=== PATIENT | female | born 1975 | race Caucasian/White ===

== ENCOUNTER 2017-09-16 20:31 | Emergency (ER) | payer OTHER ==
--- NOTE | 2017-09-16 20:44 | EDM.PDOC ---
ED HPI GENERAL MEDICAL PROBLEM - General Chief Complaint: Chest Pain Stated Complaint: CHEST PAIN AND HURTS WHEN BREATHING Time Seen by Provider: 09/16/17 20:37 - History of Present Illness INITIAL COMMENTS - FREE TEXT/NARRATIVE: HISTORY AND PHYSICAL: History of present illness: Patient 41-year-old female with no significant past medical history presents with concern of chest pain she describes it as sharp intermittent without associated shortness breath nausea vomiting diaphoresis or palpitations states it started yesterday she denies any trauma or other concern. Review of systems: As per history of present illness and below otherwise all systems reviewed and negative. Past medical history: As per history of present illness and as reviewed below otherwise noncontributory. Surgical history: As per history of present illness and as reviewed below otherwise noncontributory. Social history: No reported history of drug or alcohol abuse. Family history: As per history of present illness and as reviewed below otherwise noncontributory. Physical exam: HEENT: Atraumatic, normocephalic, pupils reactive, negative for conjunctival pallor or scleral icterus, mucous membranes moist, throat clear, neck supple, nontender, trachea midline. Lungs: Clear to auscultation, breath sounds equal bilaterally, chest nontender. Heart: S1S2, regular, negative for clicks, rubs, or JVD. Abdomen: Soft, nondistended, nontender. Negative for masses or hepatosplenomegaly. Negative for costovertebral tenderness. Pelvis: Stable nontender. Genitourinary: Deferred. Rectal: Deferred. Extremities: Atraumatic, negative for cords or calf pain. Neurovascular unremarkable. Neuro: Awake, alert, oriented. Cranial nerves II through XII unremarkable. Cerebellum unremarkable. Motor and sensory unremarkable throughout. Exam nonfocal. Diagnostics: CBC CMP troponin PT/INR chest x-ray EKG Therapeutics: IV O2 monitor aspirin 324 mg by mouth Impression: #1 atypical chest pain Definitive disposition and diagnosis as appropriate pending reevaluation and review of above. Chest Pain Score (Numeric/FACES): 7 - Related Data Allergies Allergy/AdvReac Type Severity Reaction Status Date / Time latex Allergy Blisters Verified 05/11/15 00:07 Home Meds: Home Meds Citalopram [Citalopram Hbr] 10 mg PO DAILY 07/26/13 [History] Simvastatin [Zocor] 20 mg PO DAILY 07/26/13 [History] Past Medical History - Past Health History Medical/Surgical History: Denies Medical/Surgical History HEENT History: Reports: None Cardiovascular History: Reports: None, High Cholesterol Respiratory History: Reports: None Gastrointestinal History: Reports: None Genitourinary History: Reports: None 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: 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 History: Reports: None Neurological History: Reports: None Psychiatric History: Reports: Depression Endocrine/Metabolic History: Reports: None Hematologic History: Reports: None Immunologic History: Reports: None Oncologic (Cancer) History: Reports: None Dermatologic History: Reports: None - Infectious Disease History Infectious Disease History: Reports: Chicken Pox - Past Surgical History Head Surgeries/Procedures: Reports: None HEENT Surgical History: Reports: Adenoidectomy, Tonsillectomy Respiratory Surgical History: Reports: None GI Surgical History: Reports: None Female Surgical History: Reports: None Endocrine Surgical History: Reports: None 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 Surgical History: Reports: None Oncologic Surgical History: Reports: None Social & Family History - Family History Oncologic: Reports: Ovarian - Tobacco Use Smoking Status *Q: Never Smoker ED ROS GENERAL - Review of Systems Review Of Systems: ROS reveals no pertinent complaints other than HPI. ED EXAM, GENERAL - Physical Exam Exam: See Below (The dictation) Course - Vital Signs Last Recorded V/S: Last Vital Signs Temp 36.3 C 09/16/17 20:37 Pulse 65 09/16/17 22:03 Resp 18 09/16/17 22:03 BP 103/63 09/16/17 22:03 Pulse Ox 95 09/16/17 22:03 - Orders/Labs/Meds Orders: Active Orders 24 hr Category Date Time Status Cardiac Monitoring [RC] . DIRECTED Care 09/16/17 20:44 Active EKG Documentation Completion [RC] STAT Care 09/16/17 20:44 Active Ang Chest [CT] Stat Exams 09/16/17 21:25 Taken Chest 1V Frontal [CR] Stat Exams 09/16/17 20:45 Taken Sodium Chloride 0.9% [Saline Flush] Med 09/16/17 20:45 Active 10 ml FLUSH ASDIRECTED PRN Sodium Chloride 0.9% [Saline Flush] Med 09/16/17 20:45 Active 2.5 ml FLUSH ASDIRECTED PRN Saline Lock Insert [OM.PC] Stat Oth 09/16/17 20:44 Ordered Medication Orders Sodium Chloride (Saline Flush) 10 ml FLUSH ASDIRECTED PRN PRN Reason: Keep Vein Open Last Admin: 09/16/17 20:53 Dose: 10 ml Sodium Chloride (Saline Flush) 2.5 ml FLUSH ASDIRECTED PRN PRN Reason: Keep Vein Open Last Admin: 09/16/17 20:53 Dose: 2.5 ml Labs: Laboratory Tests 09/16/17 09/16/17 09/16/17 Range/Units 20:48 20:48 20:48 WBC 8.81 (4.0-11.0) K/uL RBC 4.65 (4.30-5.90) M/uL Hgb 9.7 L (12.0-16.0) g/dL Hct 32.0 L (36.0-46.0) % MCV 68.8 L (80.0-98.0) fL MCH 20.9 L (27.0-32.0) pg MCHC 30.3 L (31.0-37.0) g/dL RDW Std Deviation 41.5 (28.0-62.0) fl RDW Coeff of Samira 17 H (11.0-15.0) % Plt Count 381 (150-400) K/uL MPV 9.30 (7.40-12.00) fL Neut % (Auto) 68.9 (48.0-80.0) % Lymph % (Auto) 22.5 (16.0-40.0) % [place] % (Auto) 5.8 (0.0-15.0) % Eos % (Auto) 2.5 (0.0-7.0) % Baso % (Auto) 0.3 (0.0-1.5) % Neut # (Auto) 6.1 H (1.4-5.7) K/uL Lymph # (Auto) 2.0 (0.6-2.4) K/uL [place] # (Auto) 0.5 (0.0-0.8) K/uL Eos # (Auto) 0.2 (0.0-0.7) K/uL Baso # (Auto) 0.0 (0.0-0.1) K/uL Nucleated RBC % 0.0 /100WBC Nucleated RBCs # 0 K/uL INR 0.98 D-Dimer, Quantitative 2.00 H (0.0-0.52) mg/LFEU Sodium 138 (136-145) mmol/L Potassium 3.6 (3.5-5.1) mmol/L Chloride 104 (98-107) mmol/L Carbon Dioxide 25.3 (21.0-32.0) mmol/L BUN 12 (7.0-18.0) mg/dL Creatinine 0.9 (0.6-1.0) mg/dL Est Cr Clr Drug Dosing 72.47 mL/min Estimated GFR (MDRD) > 60.0 ml/min Glucose 94 (74-106) mg/dL Calcium 9.0 (8.5-10.1) mg/dL Total Bilirubin 0.3 (0.2-1.0) mg/dL AST 15 (15-37) IU/L ALT 26 (14-63) IU/L Alkaline Phosphatase 77 (46-116) U/L Troponin I < 0.050 (0.000-0.056) ng/mL Total Protein 7.1 (6.4-8.2) g/dL Albumin 3.8 (3.4-5.0) g/dL Globulin 3.3 (2.0-3.5) g/dL Albumin/Globulin Ratio 1.2 L (1.3-2.8) Meds: Medications Generic Name Dose Route Start Last Admin Trade Name Skipq PRN Reason Stop Dose Admin Sodium Chloride 10 ml 09/16/17 20:45 09/16/17 20:53 Saline Flush FLUSH 10 ml ASDIRECTED PRN Administration Keep Vein Open Sodium Chloride 2.5 ml 09/16/17 20:45 09/16/17 20:53 Saline Flush FLUSH 2.5 ml ASDIRECTED PRN Administration Keep Vein Open Discontinued Medications Generic Name Dose Route Start Last Admin Trade Name Freq PRN Reason Stop Dose Admin Aspirin 324 mg 09/16/17 20:45 09/16/17 20:53 Aspirin PO 09/16/17 20:46 324 mg ONETIME ONE Administration Iopamidol 50 ml 09/16/17 22:13 09/16/17 22:14 Isovue-370 (76%) IV 09/16/17 22:14 50 ml ONETIME ONE Administration Departure - Departure Time of Disposition: 23:04 Disposition: Home, Self-Care 01 Condition: Good Clinical Impression: Atypical chest pain - Discharge Information Referrals: PCP,None [Primary Care Provider] - Forms: ED Department Discharge Additional Instructions: The following information is given to patients seen in the emergency department who are being discharged to home. This information is to outline your options for follow-up care. We provide all patients seen in our emergency department with a follow-up referral. The need for follow-up, as well as the timing and circumstances, are variable depending upon the specifics of your emergency department visit. If you don't have a primary care physician on staff, we will provide you with a referral. We always advise you to contact your personal physician following an emergency department visit to inform them of the circumstance of the visit and for follow-up with them and/or the need for any referrals to a consulting specialist. The emergency department will also refer you to a specialist when appropriate. This referral assures that you have the opportunity for followup care with a specialist. All of these measure are taken in an effort to provide you with optimal care, which includes your followup. Under all circumstances we always encourage you to contact your private physician who remains a resource for coordinating your care. When calling for followup care, please make the office aware that this follow-up is from your recent emergency room visit. If for any reason you are refused follow-up, please contact the [facility] emergency department at and asked to speak to the emergency department charge nurse. Follow-up primary medical doctor Motrin/Tylenol as directed or return as needed as discussed - My Orders Last 24 Hours: My Active Orders 09/16/17 20:44 Cardiac Monitoring [RC] . DIRECTED EKG Documentation Completion [RC] STAT Saline Lock Insert [OM.PC] Stat 09/16/17 20:45 Chest 1V Frontal [CR] Stat Sodium Chloride 0.9% [Saline Flush] 10 ml FLUSH ASDIRECTED PRN Sodium Chloride 0.9% [Saline Flush] 2.5 ml FLUSH ASDIRECTED PRN 09/16/17 21:25 Ang Chest [CT] Stat - Assessment/Plan Last 24 Hours: My Active Orders 09/16/17 20:44 Cardiac Monitoring [RC] . DIRECTED EKG Documentation Completion [RC] STAT Saline Lock Insert [OM.PC] Stat 09/16/17 20:45 Chest 1V Frontal [CR] Stat Sodium Chloride 0.9% [Saline Flush] 10 ml FLUSH ASDIRECTED PRN Sodium Chloride 0.9% [Saline Flush] 2.5 ml FLUSH ASDIRECTED PRN 09/16/17 21:25 Ang Chest [CT] Stat
[2017-09-16] MEDS ORDERED: Aspirin 81 MG Tab.Chew PO ONE (20:45)
[2017-09-16] MEDS ORDERED: Sodium Chloride 0.9% 2.5 ML Syringe FLUSH PRN (20:45)
[2017-09-16] MEDS ORDERED: Sodium Chloride 0.9% 10 ML Syringe FLUSH PRN (20:45)
[2017-09-16 21:24] LABS: CHLORIDE,CL 104 mmol/L (98-107); SODIUM,NA 138 mmol/L (136-145)
[2017-09-16] MEDS ORDERED: Iopamidol 755 MG/ML 50 ML Bottle IV ONE (22:13)
[2017-09-16 23:09] VITALS: BP 115/73
--- NOTE | 2017-09-18 20:29 | CR ---
EXAM DATE: 09/16/17 PATIENT'S AGE: 41 Patient: YUE MANSFIELD Facility: [place], [place] Site . Site : 1975 Study: XRay Chest [id number] 9:19:49 PM Ordering Physician: Jeb Cameron Final Report: INDICATION: Chest Pain, shortness of breath TECHNIQUE: Chest radiograph 1 view COMPARISON: 07/28/08 FINDINGS: Moderate degradation of image quality noted due to body habitus. Mediastinum: The heart silhouette is normal in size and morphology. The mediastinum is normal in appearance. Lungs: Both lungs are unremarkable in appearance. No sign of pleural effusion seen. No pneumothorax is identified. Bones and soft tissue: Unremarkable for age. IMPRESSION: 1. No acute cardiopulmonary disease is seen. Dictated by: Amador Tovar MD @ 09/16/2017 21:31:53 (Electronic Signature) Report Signed by Proxy. [facility] HOSPITALMarva
--- NOTE | 2017-09-18 20:30 | CT ---
EXAM DATE: 09/16/17 PATIENT'S AGE: 41 Patient: YUE MANSFIELD Facility: [place], [place] Site . Site : 1975 Study: CT Chest Angio [id number] 10:15:22 PM Ordering Physician: Jeb Cameron Final Report: INDICATION: Chest pain since yesterday. Rule out pulmonary embolism. TECHNIQUE: Volumetric helical scanning of the thorax was performed during infusion of 50 cc of Isovue 370 contrast material IV, timing optimized for pulmonary arterial opacification. Coronal and sagittal reconstructions were obtained. COMPARISON: None. FINDINGS: The images are of acceptable quality and demonstrate uniform vascular enhancement within the pulmonary arteries. No pulmonary arterial filling defect is identified. The lungs are low in volume with crowded markings. No infiltrate or pleural effusion is demonstrated. No airway abnormality is evident. No mediastinal or hilar lymphadenopathy is demonstrated. The heart size is normal. Images of the upper abdomen are unremarkable. IMPRESSION: 1. Negative for pulmonary embolism. 2. Lungs low in volume with crowded markings. No obvious infiltrate. Please note that all CT scans at this facility use dose modulation, iterative reconstruction, and/or weight-based dosing when appropriate to reduce radiation dose to as low as reasonably achievable. Dictated by Slade Ye MD @ Sep 16 2017 10:55PM (Electronic Signature) Report Signed by Proxy. ALEJANDRA
== END 2017-09-16 23:19 | disposition home or self-care (01) ==
LOC: MW.ED 20:31
DX: R07.89 Other chest pain (principal); Z91.040 Latex allergy status; Z79.899 Other long term (current) drug therapy
CPT/HCPCS: 36415; 71045; 71275; 80053; 84484; 85025; 85379; 85610; 93005; 99285; A9270; Q9967

== ENCOUNTER 2019-01-21 07:32 | Emergency (ER) | payer OTHER ==
[2019-01-21] MEDS ORDERED: Ibuprofen 400 MG Tab PO ONE (07:56)
--- NOTE | 2019-01-21 08:10 | EDM.PDOC ---
ED HPI GENERAL MEDICAL PROBLEM - General Chief Complaint: Lower Extremity Injury/Pain Stated Complaint: PAIN IN RIGHT HIP Time Seen by Provider: 01/21/19 07:41 Source of Information: Reports: Patient History Limitations: Reports: No Limitations - History of Present Illness INITIAL COMMENTS - FREE TEXT/NARRATIVE: pt. presenting today w/ right hip pain w/ radiation into right leg; this has been a chronic issue that was exacerbated recently after tripping over her dog last week. Has tried Ibuprofen w/ minimal relief but still is having 8/10 pain this AM. HAs been seen by a chiropractor multiple times w/ no resolution of symptoms. Denies fevers, chills, BA, changes in bowel or bladder habits. +mild antalgic gait. No other symptoms to report. RIght Hip Pain Score (Numeric/FACES): 9 - Related Data Allergies Allergy/AdvReac Type Severity Reaction Status Date / Time latex Allergy Blisters Verified 01/21/19 07:46 Home Meds: Home Meds Citalopram [Citalopram Hbr] 10 mg PO DAILY 07/26/13 [History] Simvastatin [Zocor] 20 mg PO DAILY 07/26/13 [History] methylPREDNISolone [Medrol] 84 mg PO DAILY 6 Days #1 tab.ds.pk 01/21/19 [Rx] Past Medical History - Past Health History Medical/Surgical History: Denies Medical/Surgical History HEENT History: Reports: None Cardiovascular History: Reports: None, High Cholesterol Respiratory History: Reports: None Gastrointestinal History: Reports: None Genitourinary History: Reports: None 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: 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 History: Reports: None Neurological History: Reports: None Psychiatric History: Reports: Depression Endocrine/Metabolic History: Reports: None Hematologic History: Reports: None Immunologic History: Reports: None Oncologic (Cancer) History: Reports: None Dermatologic History: Reports: None - Infectious Disease History Infectious Disease History: Reports: Chicken Pox - Past Surgical History Head Surgeries/Procedures: Reports: None HEENT Surgical History: Reports: Adenoidectomy, Tonsillectomy Respiratory Surgical History: Reports: None GI Surgical History: Reports: None Female Surgical History: Reports: None Endocrine Surgical History: Reports: None 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 Surgical History: Reports: None Oncologic Surgical History: Reports: None Social & Family History - Family History Oncologic: Reports: Ovarian Review of Systems - Review of Systems Review Of Systems: See Below Constitutional: Denies: Chills, Fever Eyes: Reports: No Symptoms Ears: Reports: No Symptoms Mouth/Throat: Reports: No Symptoms Respiratory: Reports: No Symptoms. Denies: Shortness of Breath, Wheezing Cardiovascular: Denies: Chest Pain GI/Abdominal: Denies: Abdominal Pain, Constipation, Decreased Appetite, Diarrhea , Nausea, Vomiting Genitourinary: Denies: Incontinence 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: Reports: Back Pain. Denies: Muscle Pain, Muscle Stiffness Skin: Reports: No Symptoms Neurological: Denies: Paresthesia, Tingling, Difficulty Walking, Weakness Psychiatric: Reports: No Symptoms ED EXAM, GENERAL - Physical Exam Exam: See Below Exam Limited By: No Limitations General Appearance: Alert, No Apparent Distress Ears: Normal External Exam Nose: Normal Inspection Throat/Mouth: Normal Inspection Respiratory/Chest: No Respiratory Distress Cardiovascular: Regular Rate, Rhythm, No Edema GI/Abdominal: Soft, Non-Tender Back Exam: Normal Inspection, Other (no midline tenderness over LS spine ; + mild paraspinal tenderness over left L2. no step-offs appreciated. no other area of point tenderness..+mild antalgic gait. 4/5 strength on right ...5/5 on left.....sensation intact ) Neurological: Alert, Oriented, Normal Cognition Psychiatric: Normal Affect, Normal Mood Course - Vital Signs Text/Narrative:: Ibuprofen 400 given CR of hip performed : no acute fx/dislo Last Recorded V/S: Last Vital Signs Temp 97.4 F 01/21/19 07:46 Pulse 75 01/21/19 07:46 Resp 18 01/21/19 07:46 BP 136/93 H 01/21/19 07:46 Pulse Ox 98 01/21/19 07:46 - Orders/Labs/Meds Orders: Active Orders 24 hr Category Date Time Status Lumbar Spine 2 or 3V [CR] Stat Exams 01/21/19 07:56 Taken Meds: Medications Discontinued Medications Generic Name Dose Route Start Last Admin Trade Name Alonzo PRN Reason Stop Dose Admin Ibuprofen 400 mg 01/21/19 07:56 01/21/19 08:11 Motrin PO 01/21/19 07:57 400 mg ONETIME ONE Administration Departure - Departure Time of Disposition: 09:14 Disposition: Home, Self-Care 01 Clinical Impression: Radicular low back pain - Discharge Information Prescriptions: methylPREDNISolone [Medrol] 84 mg PO DAILY 6 Days #1 tab.ds.pk Instructions: Radicular Pain Referrals: PCP,None [Primary Care Provider] - Forms: ED Department Discharge Care Plan Goals: Patient is advised to follow up with PCP within 1-week Advised to set up an appointment with physical therapy ([facility]) Notify provider if symptoms of fever, chills, body aches, and or changes in bladder or bowel habits develop. - My Orders Last 24 Hours: My Active Orders 01/21/19 07:56 Lumbar Spine 2 or 3V [CR] Stat - Assessment/Plan Last 24 Hours: My Active Orders 01/21/19 07:56 Lumbar Spine 2 or 3V [CR] Stat
--- NOTE | 2019-01-21 09:14 | CR ---
INDICATION: Back pain. COMPARISON: Two-view chest July 28, 2008. TECHNIQUE: Three-view study lumbosacral spine. FINDINGS: No evidence of fracture or dislocation. The intervertebral disc spaces are well preserved and fail to reveal any abnormalities. No evidence of spondylolysis or spondylolisthesis. IMPRESSION: Negative radiographic examination of the lumbar sacral spine. Dictated by Marlene Grey MD @ Jan 21 2019 9:12AM Signed by Dr. Marlene Grey @ Jan 21 2019 9:14AM
[2019-01-21 09:21] VITALS: BP 123/80; PULSE 66
== END 2019-01-21 09:21 | disposition home or self-care (01) ==
LOC: MW.ED 07:32
DX: M54.16 Radiculopathy, lumbar region (principal); E78.00 Pure hypercholesterolemia, unspecified; Z91.040 Latex allergy status; Z79.899 Other long term (current) drug therapy
CPT/HCPCS: 72100; 99283; A9270; 99282

== ENCOUNTER 2020-04-20 18:49 | Emergency (ER) | payer OTHER ==
--- NOTE | 2020-04-20 18:58 | EDM.PDOC ---
<Abad Santana - Last Filed: 04/20/20 23:47> ED HPI GENERAL MEDICAL PROBLEM - General Stated Complaint: PRESSURE IN THROAT Time Seen by Provider: 04/20/20 18:50 - Related Data Allergies Allergy/AdvReac Type Severity Reaction Status Date / Time latex Allergy Blisters Verified 04/20/20 19:09 Home Meds: Home Meds Citalopram [Citalopram Hbr] 10 mg PO DAILY 07/26/13 [History] Simvastatin [Zocor] 20 mg PO DAILY 07/26/13 [History] Meloxicam 04/20/20 [History] Omeprazole Magnesium [Prilosec Otc] 20 mg PO BID #30 tablet. 04/20/20 [Rx] Course - Re-Assessments/Exams Free Text/Narrative Re-Assessment/Exam: 04/20/20 23:47 This patient was signed out to me from Nicolasa Almazan. I perrformed an exam after treatments were initiated by her. SHe feels much better. Her CT angio chest and neck were unremarkable. Her delta trop was unchanged. she is currently stable for discharge. I advised the patient to return to the ER for reevaluation if symptoms worsened, including fever, worsening pain, or any other worrisome symptoms. I instructed the patient to follow up with their PCP within 2-3 days. Departure - Departure Time of Disposition: 23:53 Disposition: Home, Self-Care 01 Condition: Good Clinical Impression: Atypical chest pain - Discharge Information *PRESCRIPTION DRUG MONITORING PROGRAM REVIEWED*: Not Applicable *COPY OF PRESCRIPTION DRUG MONITORING REPORT IN PATIENT YUE: Not Applicable Prescriptions: Omeprazole Magnesium [Prilosec Otc] 20 mg PO BID #30 tablet. Instructions: Nonspecific Chest Pain, Adult Referrals: Mika Madera MD [Primary Care Provider] - 3 Days Forms: ED Department Discharge Additional Instructions: The following information is given to patients seen in the emergency department who are being discharged to home. This information is to outline your options for follow-up care. We provide all patients seen in our emergency department with a follow-up referral. The need for follow-up, as well as the timing and circumstances, are variable depending upon the specifics of your emergency department visit. If you don't have a primary care physician on staff, we will provide you with a referral. We always advise you to contact your personal physician following an emergency department visit to inform them of the circumstance of the visit and for follow-up with them and/or the need for any referrals to a consulting specialist. The emergency department will also refer you to a specialist when appropriate. This referral assures that you have the opportunity for follow-up care with a specialist. All of these measure are taken in an effort to provide you with optimal care, which includes your follow-up. Under all circumstances we always encourage you to contact your private physician who remains a resource for coordinating your care. When calling for follow-up care, please make the office aware that this follow-up is from your recent emergency room visit. If for any reason you are refused follow-up, please contact the [facility] Emergency Department at and asked to speak to the emergency department charge nurse. [facility] [address] [place] [address] [place] [address] 1. Take OTC Prilosec as directed and as discussed. 2. You can alternate ibuprofen and tylenol as directed for pain and discomfort. 3. Follow up with a primary care provider as discussed. Return to the ED as needed and as discussed. <Ceci Almazan - Last Filed: 04/24/20 10:05> ED HPI GENERAL MEDICAL PROBLEM - General Source of Information: Reports: Patient History Limitations: Reports: No Limitations - History of Present Illness INITIAL COMMENTS - FREE TEXT/NARRATIVE: HISTORY AND PHYSICAL: History of present illness: Patient is a 44-year-old female resents emergency room today with concern of a tightening sensation/discomfort in her throat/chest that radiates between her chest and her throat for 3 hours. Patient states that she was just sitting in the car when she felt a spasming sensation in her throat. Patient states that the spasm made her feel like she had to burp. Patient states that immediately following this, she vomited and since then has had a discomfort of her throat that radiates into her upper chest. States that she does not feel nauseous anymore and has not had any more episodes of vomiting. Patient states she did feel associated heartburn so did take a ranitidine [id number]. Patient states she has had a history of "heartburn" in the past. Patient states that she has been able to eat and drink since the episode but does have the discomfort of her throat. Patient has a history of anxiety and depression but denies any other health history. Patient denies fever, chills, shortness of breath, or cough. Denies headache, neck stiff ness, change in vision, syncope, or near syncope. Denies nausea, vomiting, abdominal pain, diarrhea, constipation, or dysuria. Has not noted any blood in urine or stool. Patient has been eating and drinking appropriately. Review of systems: As per history of present illness and below otherwise all systems reviewed and negative. Past medical history: As per history of present illness and as reviewed below otherwise noncontributory. Surgical history: As per history of present illness and as reviewed below otherwise noncontributory. Social history: See social history for further information Family history: As per history of present illness and as reviewed below otherwise noncontributory. Physical exam: General: Patient is alert, oriented, and in no acute distress. Patient laying comfortably on exam table. Vitals stable and reviewed by me. HEENT: Atraumatic, normocephalic, pupils equal and reactive bilaterally, negative for conjunctival pallor or scleral icterus, mucous membranes moist, TMs normal bilaterally, throat clear, neck supple, nontender, trachea midline. No drooling or trismus noted. No meningeal signs. No hot potato voice noted. Lungs: Clear to auscultation, breath sounds equal bilaterally, chest nontender. Heart: S1S2, regular rate and rhythm without overt murmur Abdomen: Soft, nondistended, nontender. Negative for masses or hepatosplenomegaly. Negative for costovertebral tenderness. Pelvis: Stable nontender. Genitourinary: Deferred. Rectal: Deferred. Skin: Intact, warm, dry. No lesions or rashes noted. Extremities: Atraumatic, negative for cords or calf pain. Neurovascular unremarkable. Neuro: Awake, alert, oriented. Cranial nerves II through XII unremarkable. Cerebellum unremarkable. Motor and sensory unremarkable throughout. Exam nonfocal. Notes: Dr. Santana has assumed care of patient and will follow remaining diagnostics and disposition for patient. Diagnostics: EKG, CBC, CMP, UA, CXR, Trop, Lipase, Neck/Chest CT w cont Therapeutics: Protonix Prescription: Impression: Atypical chest pain Plan: Definitive disposition and diagnosis as appropriate pending reevaluation and review of above. Throat Pain Score (Numeric/FACES): 7 Past Medical History - Past Health History Medical/Surgical History: Denies Medical/Surgical History HEENT History: Reports: None Cardiovascular History: Reports: None, High Cholesterol Respiratory History: Reports: None Gastrointestinal History: Reports: None Genitourinary History: Reports: None ORTHOPEDIC PHYSICIAN History: Reports: 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 History: Reports: None Neurological History: Reports: None Psychiatric History: Reports: Depression Endocrine/Metabolic History: Reports: None Hematologic History: Reports: None Immunologic History: Reports: None Oncologic (Cancer) History: Reports: None Dermatologic History: Reports: None - Infectious Disease History Infectious Disease History: Reports: Chicken Pox - Past Surgical History Head Surgeries/Procedures: Reports: None HEENT Surgical History: Reports: Adenoidectomy, Tonsillectomy Respiratory Surgical History: Reports: None GI Surgical History: Reports: None Female Surgical History: Reports: None Endocrine Surgical History: Reports: None 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 Surgical History: Reports: None Oncologic Surgical History: Reports: None Social & Family History - Family History Family Medical History: No Pertinent Family History Oncologic: Reports: Ovarian - Caffeine Use Caffeine Use: Reports: Coffee ED ROS GENERAL - Review of Systems Review Of Systems: Comprehensive ROS is negative, except as noted in HPI. ED EXAM, GENERAL - Physical Exam Exam: See Below (see dictation) Course - Vital Signs Last Recorded V/S: Last Vital Signs Temp 98.7 F 04/21/20 00:00 Pulse 76 04/21/20 00:00 Resp 18 04/21/20 00:00 BP 138/92 H 04/21/20 00:00 Pulse Ox 96 04/21/20 00:00 - Orders/Labs/Meds Labs: Laboratory Tests 04/20/20 04/20/20 04/20/20 Range/Units 19:30 19:30 19:30 WBC 7.53 (4.0-11.0) K/uL RBC 4.75 (4.30-5.90) M/uL Hgb 12.7 (12.0-16.0) g/dL Hct 39.8 (36.0-46.0) % MCV 83.8 (80.0-98.0) fL MCH 26.7 L (27.0-32.0) pg MCHC 31.9 (31.0-37.0) g/dL RDW Std Deviation 47.6 (28.0-62.0) fl RDW Coeff of Samira 16 H (11.0-15.0) % Plt Count 316 (150-400) K/uL MPV 9.80 (7.40-12.00) fL Neut % (Auto) 63.3 (48.0-80.0) % Lymph % (Auto) 27.1 (16.0-40.0) % [place] % (Auto) 7.4 (0.0-15.0) % Eos % (Auto) 1.7 (0.0-7.0) % Baso % (Auto) 0.5 (0.0-1.5) % Neut # (Auto) 4.8 (1.4-5.7) K/uL Lymph # (Auto) 2.0 (0.6-2.4) K/uL [place] # (Auto) 0.6 (0.0-0.8) K/uL Eos # (Auto) 0.1 (0.0-0.7) K/uL Baso # (Auto) 0.0 (0.0-0.1) K/uL Nucleated RBC % 0.0 /100WBC Nucleated RBCs # 0 K/uL Sodium 140 (136-145) mmol/L Potassium 3.9 (3.5-5.1) mmol/L Chloride 105 (98-107) mmol/L Carbon Dioxide 26.0 (21.0-32.0) mmol/L BUN 16 (7.0-18.0) mg/dL Creatinine 0.9 (0.6-1.0) mg/dL Est Cr Clr Drug Dosing 70.32 mL/min Estimated GFR (MDRD) > 60.0 ml/min Glucose 90 (74-106) mg/dL Calcium 8.1 L (8.5-10.1) mg/dL Total Bilirubin 0.2 (0.2-1.0) mg/dL AST 12 L (15-37) IU/L ALT 23 (14-63) IU/L Alkaline Phosphatase 69 (46-116) U/L Troponin I < 0.050 (0.000-0.056) ng/mL Total Protein 7.0 (6.4-8.2) g/dL Albumin 3.2 L (3.4-5.0) g/dL Globulin 3.8 (2.6-4.0) g/dL Albumin/Globulin Ratio 0.8 L (0.9-1.6) Lipase 175 (73-393) U/L Urine Color YELLOW Urine Appearance CLEAR Urine pH 6.5 (5.0-8.0) Ur Specific [place] 1.025 (1.001-1.035) Urine Protein NEGATIVE (NEGATIVE) mg/dL Urine Glucose (UA) NEGATIVE (NEGATIVE) mg/dL Urine Ketones NEGATIVE (NEGATIVE) mg/dL Urine Occult Blood LARGE H (NEGATIVE) Urine Nitrite NEGATIVE (NEGATIVE) Urine Bilirubin NEGATIVE (NEGATIVE) Urine Urobilinogen 0.2 (<2.0) EU/dL Ur Leukocyte Esterase NEGATIVE (NEGATIVE) Urine RBC 2-5 (0-2/HPF) Urine WBC 0-2 (0-5/HPF) Ur Epithelial Cells FEW (NONE-FEW) Urine Bacteria 2+ H (NEGATIVE) Urine HCG, Qual (NEGATIVE) 04/20/20 04/20/20 Range/Units 19:30 22:48 WBC (4.0-11.0) K/uL RBC (4.30-5.90) M/uL Hgb (12.0-16.0) g/dL Hct (36.0-46.0) % MCV (80.0-98.0) fL MCH (27.0-32.0) pg MCHC (31.0-37.0) g/dL RDW Std Deviation (28.0-62.0) fl RDW Coeff of Samira (11.0-15.0) % Plt Count (150-400) K/uL MPV (7.40-12.00) fL Neut % (Auto) (48.0-80.0) % Lymph % (Auto) (16.0-40.0) % [place] % (Auto) (0.0-15.0) % Eos % (Auto) (0.0-7.0) % Baso % (Auto) (0.0-1.5) % Neut # (Auto) (1.4-5.7) K/uL Lymph # (Auto) (0.6-2.4) K/uL [place] # (Auto) (0.0-0.8) K/uL Eos # (Auto) (0.0-0.7) K/uL Baso # (Auto) (0.0-0.1) K/uL Nucleated RBC % /100WBC Nucleated RBCs # K/uL Sodium (136-145) mmol/L Potassium (3.5-5.1) mmol/L Chloride (98-107) mmol/L Carbon Dioxide (21.0-32.0) mmol/L BUN (7.0-18.0) mg/dL Creatinine (0.6-1.0) mg/dL Est Cr Clr Drug Dosing mL/min Estimated GFR (MDRD) ml/min Glucose (74-106) mg/dL Calcium (8.5-10.1) mg/dL Total Bilirubin (0.2-1.0) mg/dL AST (15-37) IU/L ALT (14-63) IU/L Alkaline Phosphatase (46-116) U/L Troponin I < 0.050 (0.000-0.056) ng/mL Total Protein (6.4-8.2) g/dL Albumin (3.4-5.0) g/dL Globulin (2.6-4.0) g/dL Albumin/Globulin Ratio (0.9-1.6) Lipase (73-393) U/L Urine Color Urine Appearance Urine pH (5.0-8.0) Ur Specific [place] (1.001-1.035) Urine Protein (NEGATIVE) mg/dL Urine Glucose (UA) (NEGATIVE) mg/dL Urine Ketones (NEGATIVE) mg/dL Urine Occult Blood (NEGATIVE) Urine Nitrite (NEGATIVE) Urine Bilirubin (NEGATIVE) Urine Urobilinogen (<2.0) EU/dL Ur Leukocyte Esterase (NEGATIVE) Urine RBC (0-2/HPF) Urine WBC (0-5/HPF) Ur Epithelial Cells (NONE-FEW) Urine Bacteria (NEGATIVE) Urine HCG, Qual NEGATIVE (NEGATIVE) Meds: Medications Discontinued Medications Generic Name Dose Route Start Last Admin Trade Name Freq PRN Reason Stop Dose Admin Pantoprazole Sodium 80 mg/ 20 mls @ 420 mls/hr 02/08/21 19:20 04/20/20 19:36 Sodium Chloride IVPUSH 04/20/20 19:22 420 mls/hr ONETIME ONE Administration Iopamidol 80 ml 04/20/20 22:24 04/20/20 22:29 Isovue Multipack-370 (76%) IVPUSH 04/20/20 22:25 80 ml ONETIME STA Administration Iopamidol 80 ml 04/20/20 22:24 04/20/20 22:30 Isovue Multipack-370 (76%) IVPUSH 04/20/20 22:25 80 ml ONETIME STA Administration Sodium Chloride 2.5 ml 04/20/20 19:16 04/20/20 19:38 Saline Flush FLUSH 2.5 ml ASDIRECTED PRN Administration Keep Vein Open Sodium Chloride 10 ml 04/20/20 19:16 04/20/20 19:37 Saline Flush FLUSH 10 ml ASDIRECTED PRN Administration Keep Vein Open
[2020-04-20] MEDS ORDERED: Sodium Chloride 0.9% 2.5 ML Syringe FLUSH PRN (19:16)
[2020-04-20] MEDS ORDERED: Sodium Chloride 0.9% 10 ML Syringe FLUSH PRN (19:16)
--- NOTE | 2020-04-20 19:16 | PCM.EKG ---
#1 Interpretation EKG Date: 04/20/20 EKG Interpretation Comments: Heart rate = 67 bpm, normal sinus rhythm, normal QRS interval, no STEMI. EKG and rhythm strip interpreted by me at 1900
[2020-04-20] MEDS ORDERED: Pantoprazole 80 MG in Sodium Chloride 0.9% 20 ML IVPUSH ONE (19:20)
--- NOTE | 2020-04-20 19:57 | CR ---
INDICATION: Chest pain TECHNIQUE: Chest radiograph 1 view COMPARISON: 09/16/2017 FINDINGS: Moderate degradation of image quality noted due to body habitus. Mediastinum: The mediastinum is normal in appearance. The heart silhouette is normal in size and morphology. Lung: Both lungs are unremarkable in appearance. No sign of pleural effusion seen. No pneumothorax is identified. Bone and Soft tissue: Unremarkable for age. IMPRESSION: 1. No acute cardiopulmonary disease is seen. Dictated by: Amador Tovar MD @ 04/20/2020 19:55:50 (Electronically Signed)
[2020-04-20 20:12] LABS: BLOOD UREA NITROGEN,BUN 16 mg/dL (7.0-18.0); CHLORIDE,CL 105 mmol/L (98-107); GLUCOSE RANDOM 90 mg/dL (74-106); LIPASE 175 U/L (73-393); POTASSIUM,K 3.9 mmol/L (3.5-5.1); SODIUM,NA 140 mmol/L (136-145)
[2020-04-20] MEDS ORDERED: Iopamidol 755 MG/ML 500 ML Multipack Bottle IVPUSH STA ×2 (22:24)
--- NOTE | 2020-04-20 22:30 | CT ---
INDICATION: Chest and base of throat pain TECHNIQUE: Axial images were obtained from the thoracic inlet to the diaphragm. Reformats: Coronal and sagittal IV Contrast: 80 cc Isovue 370 COMPARISON: None. FINDINGS: Vascular: The great vessels are unremarkable. Thoracic aorta is normal in caliber without evidence of dissection. Pulmonary artery unremarkable. Mediastinum: No enlarged mediastinal lymph nodes. No pericardial effusion. Lungs and Pleural Space: No pneumothorax or pleural effusion. No acute consolidation. Chest wall: No masses. Upper abdomen: Normal. Bones: Unremarkable for age. IMPRESSION: Unremarkable chest CTA. Please note that all CT scans at this facility use dose modulation, iterative reconstruction, and/or weight-based dosing when appropriate to reduce radiation dose to as low as reasonably achievable. Dictated by Hemal Camacho MD @ Apr 20 2020 10:22PM Signed by Dr. Hemal Camacho @ Apr 20 2020 10:27PM
--- NOTE | 2020-04-20 22:36 | CT ---
INDICATION: Neck pain. TECHNIQUE: After standard noncontrast head CT, high resolution axial CT images acquired through the neck following rapid intravenous administration of iodinated contrast. Multiplanar MIPS of cervical vasculature performed. FINDINGS: There is minor carotid atherosclerotic disease without stenosis. There is no evidence for dissection. The vertebral arteries are widely patent throughout their course. The soft tissues of the neck are within normal limits. The cervical spine is in normal alignment. IMPRESSION: Unremarkable CTA neck. Anjel Montana MD Neurointerventional Radiologist [facility] Please note that all CT scans at this facility use dose modulation, iterative reconstruction, and/or weight-based dosing when appropriate to reduce radiation dose to as low as reasonably achievable. Dictated by Anjel Montana MD @ Apr 21 2020 7:36AM Signed by Dr. Anjel Montana @ Apr 21 2020 7:39AM
[2020-04-21 00:08] VITALS: BP 138/92; PULSE 76
== END 2020-04-21 00:04 | disposition home or self-care (01) ==
LOC: MW.ED 18:49
DX: R07.89 Other chest pain (principal); E78.00 Pure hypercholesterolemia, unspecified; Z79.899 Other long term (current) drug therapy; Z91.040 Latex allergy status
CPT/HCPCS: 36415; 70498; 71045; 71275; 80053; 81001; 81025; 83690; 84484; 85025; 87086; 93005; 96374; 99285; C9113; Q9967; 93010; 99283

== ENCOUNTER 2020-11-17 09:14 | Emergency (ER) | payer OTHER ==
--- NOTE | 2020-11-17 10:19 | EDM.PDOC ---
ED HPI GENERAL MEDICAL PROBLEM - General Chief Complaint: General Stated Complaint: SOB,ARMS & LEGS WENT NUMB, RINGING EARS Time Seen by Provider: 11/17/20 09:16 Source of Information: Reports: Patient History Limitations: Reports: No Limitations - History of Present Illness INITIAL COMMENTS - FREE TEXT/NARRATIVE: HISTORY AND PHYSICAL: History of present illness: Patient is a 45-year-old female who presents to the emergency room with complaints of chest pain, ringing in her ears, bilateral arm and lower extremity tingling and sensation of near syncope. She states she woke up this morning at 6 AM to get her kids ready for school and had felt well. She ate breakfast and was getting ready to lay down for a little longer (normally does this daily). At 7 AM she started to develop midsternal chest pain and tingling sensation to both upper and lower extremities bilaterally. She stated she tried to drink water to help alleviate her symptoms. Shortly after she started having a ringing sensation in her ears and felt like she was going to "pass out". She sat herself down on the floor and after 2-3 minutes symptoms went away. Her son brought her to the ED for evaluation to make sure "my heart is okay... especially at my age". States she feels better since arrival. Patient denies any fever, chills, headache, change in vision, syncope, back pain, shortness of breath or cough. Denies any abdominal pain, nausea, vomiting, diarrhea, constipation or dysuria. Has not noted any blood in urine or stool. Patient has been eating and drinking appropriately. Review of systems: As per history of present illness and below otherwise all systems reviewed and negative. Past medical history: As per history of present illness and as reviewed below otherwise noncontributory. Surgical history: As per history of present illness and as reviewed below otherwise noncontributory. Social history: See social history for further information Family history: As per history of present illness and as reviewed below otherwise noncontributory. Physical exam: General: Well developed and well nourished 45 year old female. Alert and orientated x 3. Nontoxic in appearance and in no acute distress. Vital signs are stable and have been reviewed by me. Nursing notes were reviewed. HEENT: Atraumatic, normocephalic, pupils equal and reactive bilaterally, negative for conjunctival pallor or scleral icterus, mucous membranes moist, TMs normal bilaterally, throat clear, neck supple, nontender, trachea midline. No drooling or trismus noted. No meningeal signs. No hot potato voice noted. Lungs: Clear to auscultation bilaterally. No wheezes, rales, or rhonchi. Chest nontender. Normal work of breathing, no accessory muscles used. Heart: S1S2, regular rate and rhythm without overt murmur, gallops, or rubs. No JVD. No peripheral edema Abdomen: Soft, nondistended, nontender. Normoactive bowel sounds. Negative for masses or costovertebral tenderness. Skin: Intact, warm, dry. No lesions or rashes noted. Hematologic: No petechiae or purpra. Mucosa appropriate color and normal nail bed color and refill. Extremities: Atraumatic, moves all extremities per self without difficulty or deficits, negative for cords or calf pain. Neurovascular unremarkable. Neuro: Awake, alert, oriented. Cranial nerves II through XII unremarkable. Cerebellum unremarkable. Motor and sensory unremarkable throughout. Exam nonfocal. Psychiatric: Mood and affect are appropriate. Normal thought process. Answering questions appropriately. Please note that the patient was seen and evaluated during the 2019 SARS-CoV-2 novel coronavirus pandemic period. Community viral transmission is ongoing at time of this encounter and the emergency department is operating under pandemic response procedures. Medical Decision Making: Patient is a 45-year-old female who presents to the emergency room with complaints of chest pain, tingling sensation in both her arms and legs, and near syncope since this morning. Patient states she feels much better since being here in the emergency room and has stated repeatedly that she just wanted to get "checked out and make sure my heart is okay ... Especially at my age". Her physical exam is unremarkable. I do note that she had been here in April 2020 for chest pain which she states is semi-similar but wanted to come in for evaluation. 04/20/20: Unremarkable chest CTA and angio neck. No significant findings during that ER visit. Today's lab work is unremarkable. CXR shows no acute findings. Negative D.Dimer, my suspicion for PE is very low - even moreso with her D.Dimer being negative. VSS. Negative orthostatic vital signs, no symptoms with position changes. I have talked with the patient about today's findings, in addition to providing spec ific details for plan of care. I did offer her a Zio patch as this is not her first time experiencing chest pain. She declines. Reassessment at the time of disposition demonstrates that the patient is in no acute distress. The patient is stable for discharge, counseling was provided and we discussed in great detail signs and symptoms that would prompt them to return to the Emergency Department. Medication, follow up and supportive care measures were reviewed and discussed. Voices understanding and is agreeable to plan of care. Denies any further questions or concerns at this time. Diagnostics: CBC, CMP, troponin, D-dimer, chest x-ray, head CT Therapeutics: IV fluid Prescription: None Impression: Pain, nonspecific Plan: 1. You were evaluated today on an emergent basis. Your labs are unremarkable (CBC, chemistry, cardiac enzymes, thyroid, D.dimer). Head CT is normal. Your vital signs have improved since arrival. I would like you to follow up with cardiology for further care and management. 2. You can alternate Tylenol and ibuprofen as needed for pain and fever management. 3. We encourage you to follow up with your primary care provider and/or recommended specialist in the next few days for re-evaluation and further care/management. 4. If your symptoms should worsen, new symptoms develop or any of the signs and symptoms we discussed should arise please return to the emergency room or call 911 (if needed). Definitive disposition and diagnosis as appropriate pending reevaluation and review of above. - Related Data Allergies Allergy/AdvReac Type Severity Reaction Status Date / Time latex Allergy Blisters Verified 11/17/20 11:23 Home Meds: Home Meds Citalopram [Citalopram Hbr] 10 mg PO DAILY 07/26/13 [History] Levonorgestrel/Ethin.estradiol [Falmina-28 Tablet] 1 tab PO ASDIRECTED 11/17/20 [History] atorvaSTATin [Lipitor] 10 mg PO DAILY 11/17/20 [History] Past Medical History - Past Health History Medical/Surgical History: Denies Medical/Surgical History HEENT History: Reports: None Cardiovascular History: Reports: None, High Cholesterol Respiratory History: Reports: None Gastrointestinal History: Reports: None Genitourinary History: Reports: None [employer] History: Reports: 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 History: Reports: None Neurological History: Reports: None Psychiatric History: Reports: Anxiety, Depression Endocrine/Metabolic History: Reports: None Hematologic History: Reports: None Immunologic History: Reports: None Oncologic (Cancer) History: Reports: None Dermatologic History: Reports: None - Infectious Disease History Infectious Disease History: Reports: Chicken Pox - Past Surgical History Head Surgeries/Procedures: Reports: None HEENT Surgical History: Reports: Adenoidectomy, Tonsillectomy Cardiovascular Surgical History: Reports: None Respiratory Surgical History: Reports: None GI Surgical History: Reports: None Female Surgical History: Reports: None Endocrine Surgical History: Reports: None 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 Surgical History: Reports: None Oncologic Surgical History: Reports: None Social & Family History - Family History Family Medical History: No Pertinent Family History Oncologic: Reports: Ovarian - Caffeine Use Caffeine Use: Reports: None ED ROS GENERAL - Review of Systems Review Of Systems: Comprehensive ROS is negative, except as noted in HPI. ED EXAM, GENERAL - Physical Exam Exam: See Below (See dictation) Course - Vital Signs Last Recorded V/S: Last Vital Signs Temp 98.2 F 11/17/20 12:48 Pulse 70 11/17/20 12:48 Resp 18 11/17/20 12:48 BP 121/73 11/17/20 12:48 Pulse Ox 97 11/17/20 12:48 Orthostatic Blood Pressure [ 130/87 Standing] Orthostatic Blood Pressure [ 131/85 Sitting] Orthostatic Blood Pressure [ 113/79 Supine] - Orders/Labs/Meds Orders: Active Orders 24 hr Category Date Time Status Orthostatic Vital Signs [RC] ASDIRECTED Care 11/17/20 11:23 Active UA RFX JOEY AND CULT IF INDIC [URIN] Stat Lab 11/17/20 11:23 Ordered Sodium Chloride 0.9% [Normal Saline] 1,000 ml Med 11/17/20 11:23 Active IV STAT Medication Orders Sodium Chloride (Normal Saline) 1,000 mls @ 200 mls/hr IV STAT ONE Stop: 11/17/20 16:22 Last Admin: 11/17/20 11:38 Dose: 200 mls/hr Documented by: MADAY Labs: Laboratory Tests 11/17/20 11/17/20 11/17/20 Range/Units 11:30 11:30 11:30 WBC 9.09 (4.0-11.0) K/uL RBC 4.97 (4.30-5.90) M/uL Hgb 14.3 (12.0-16.0) g/dL Hct 42.3 (36.0-46.0) % MCV 85.1 (80.0-98.0) fL MCH 28.8 (27.0-32.0) pg MCHC 33.8 (31.0-37.0) g/dL RDW Std Deviation 43.4 (28.0-62.0) fl RDW Coeff of Samira 14 (11.0-15.0) % Plt Count 327 (150-400) K/uL MPV 9.60 (7.40-12.00) fL Neut % (Auto) 76.5 (48.0-80.0) % Lymph % (Auto) 16.7 (16.0-40.0) % [place] % (Auto) 5.4 (0.0-15.0) % Eos % (Auto) 1.0 (0.0-7.0) % Baso % (Auto) 0.4 (0.0-1.5) % Neut # (Auto) 7.0 H (1.4-5.7) K/uL Lymph # (Auto) 1.5 (0.6-2.4) K/uL [place] # (Auto) 0.5 (0.0-0.8) K/uL Eos # (Auto) 0.1 (0.0-0.7) K/uL Baso # (Auto) 0.0 (0.0-0.1) K/uL Nucleated RBC % 0.0 /100WBC Nucleated RBCs # 0 K/uL D-Dimer, Quantitative (0.0-0.50) mg/L FEU Sodium 136 (136-145) mmol/L Potassium 4.2 (3.5-5.1) mmol/L Chloride 100 (98-107) mmol/L Carbon Dioxide 24.7 (21.0-32.0) mmol/L BUN 8 (7.0-18.0) mg/dL Creatinine 0.9 (0.6-1.0) mg/dL Est Cr Clr Drug Dosing 69.60 mL/min Estimated GFR (MDRD) > 60.0 ml/min Glucose 102 (74-106) mg/dL Calcium 8.8 (8.5-10.1) mg/dL Total Bilirubin 0.3 (0.2-1.0) mg/dL AST 16 (15-37) IU/L ALT 29 (14-63) IU/L Alkaline Phosphatase 84 (46-116) U/L Troponin I < 0.050 (0.000-0.056) ng/mL Total Protein 7.1 (6.4-8.2) g/dL Albumin 3.4 (3.4-5.0) g/dL Globulin 3.7 (2.6-4.0) g/dL Albumin/Globulin Ratio 0.9 (0.9-1.6) TSH, Ultra Sensitive 3.31 (0.36-3.74) uIU/mL 11/17/20 Range/Units 11:30 WBC (4.0-11.0) K/uL RBC (4.30-5.90) M/uL Hgb (12.0-16.0) g/dL Hct (36.0-46.0) % MCV (80.0-98.0) fL MCH (27.0-32.0) pg MCHC (31.0-37.0) g/dL RDW Std Deviation (28.0-62.0) fl RDW Coeff of Samira (11.0-15.0) % Plt Count (150-400) K/uL MPV (7.40-12.00) fL Neut % (Auto) (48.0-80.0) % Lymph % (Auto) (16.0-40.0) % [place] % (Auto) (0.0-15.0) % Eos % (Auto) (0.0-7.0) % Baso % (Auto) (0.0-1.5) % Neut # (Auto) (1.4-5.7) K/uL Lymph # (Auto) (0.6-2.4) K/uL [place] # (Auto) (0.0-0.8) K/uL Eos # (Auto) (0.0-0.7) K/uL Baso # (Auto) (0.0-0.1) K/uL Nucleated RBC % /100WBC Nucleated RBCs # K/uL D-Dimer, Quantitative 0.31 (0.0-0.50) mg/L FEU Sodium (136-145) mmol/L Potassium (3.5-5.1) mmol/L Chloride (98-107) mmol/L Carbon Dioxide (21.0-32.0) mmol/L BUN (7.0-18.0) mg/dL Creatinine (0.6-1.0) mg/dL Est Cr Clr Drug Dosing mL/min Estimated GFR (MDRD) ml/min Glucose (74-106) mg/dL Calcium (8.5-10.1) mg/dL Total Bilirubin (0.2-1.0) mg/dL AST (15-37) IU/L ALT (14-63) IU/L Alkaline Phosphatase (46-116) U/L Troponin I (0.000-0.056) ng/mL Total Protein (6.4-8.2) g/dL Albumin (3.4-5.0) g/dL Globulin (2.6-4.0) g/dL Albumin/Globulin Ratio (0.9-1.6) TSH, Ultra Sensitive (0.36-3.74) uIU/mL Meds: Medications Generic Name Dose Route Start Last Admin Trade Name Freq PRN Reason Stop Dose Admin Sodium Chloride 1,000 mls @ 200 mls/hr 11/17/20 11:23 11/17/20 11:38 Normal Saline IV 11/17/20 16:22 200 mls/hr STAT ONE Administration Departure - Departure Time of Disposition: 13:03 Disposition: Home, Self-Care 01 Clinical Impression: Nonspecific chest pain - Discharge Information Instructions: Nonspecific Chest Pain, Adult, [id number] Referrals: Mika Madera MD [Primary Care Provider] - Forms: ED Department Discharge Additional Instructions: The following information is given to patients seen in the emergency department who are being discharged to home. This information is to outline your options for follow-up care. We provide all patients seen in our emergency department with a follow-up referral. The need for follow-up, as well as the timing and circumstances, are variable depending upon the specifics of your emergency department visit. If you don't have a primary care physician on staff, we will provide you with a referral. We always advise you to contact your personal physician following an e mergency department visit to inform them of the circumstance of the visit and for follow-up with them and/or the need for any referrals to a consulting specialist. The emergency department will also refer you to a specialist when appropriate. This referral assures that you have the opportunity for follow-up care with a specialist. All of these measure are taken in an effort to provide you with op timal care, which includes your follow-up. Under all circumstances we always encourage you to contact your private physician who remains a resource for coordinating your care. When calling for follow-up care, please make the office aware that this follow-up is from your recent emergency room visit. If for any reason you are refused follow-up, please contact the [facility] Emergency Department at and asked to speak to the emergency department charge nurse. [facility] Primary [facility] [address] [place] [id number] [id number] Thank you for choosing the [facility] emergency department in [place] for your medical needs today. It was a pleasure caring for you. Today you were seen in the emergency department for chest pain. 1. You were evaluated today on an emergent basis. Your labs are unremarkable (CBC, chemistry, cardiac enzymes, thyroid, D.dimer). Head CT is normal. Your vital signs have improved since arrival. I would like you to follow up with cardiology for further care and management. 2. You can alternate Tylenol and ibuprofen as needed for pain and fever management. 3. We encourage you to follow up with your primary care provider and/or recommended specialist in the next few days for re-evaluation and further care/management. 4. If your symptoms should worsen, new symptoms develop or any of the signs and symptoms we discussed should arise please return to the emergency room or call 911 (if needed). Sepsis Event Note (ED) - Focused Exam Vital Signs: Vital Signs Temp Pulse Resp BP Pulse Ox 11/17/20 12:48 98.2 F 70 18 121/73 97 11/17/20 11:49 88 18 130/84 97 11/17/20 11:20 98.4 F 85 16 150/111 H 95 - My Orders Last 24 Hours: My Active Orders 11/17/20 11:23 Orthostatic Vital Signs [RC] ASDIRECTED UA RFX JOEY AND CULT IF INDIC [URIN] Stat Sodium Chloride 0.9% [Normal Saline] 1,000 ml IV STAT - Assessment/Plan Last 24 Hours: My Active Orders 11/17/20 11:23 Orthostatic Vital Signs [RC] ASDIRECTED UA RFX JOEY AND CULT IF INDIC [URIN] Stat Sodium Chloride 0.9% [Normal Saline] 1,000 ml IV STAT
[2020-11-17] MEDS ORDERED: Sodium Chloride 0.9% 1,000 ML IV ONE (11:23)
--- NOTE | 2020-11-17 11:49 | CR ---
Indication: Shortness of breath Comparison: Single view chest April 2020 Technique: Single AP view chest Findings: There is hyperinflation and chronic interstitial change. There is no focal consolidation, effusion, or pneumothorax. The cardiomediastinal silhouette is within normal limits. The bony thorax is grossly intact. Impression: No acute cardiopulmonary abnormality. Dictated by Yobani Urbina MD @ 11/17/2020 11:48:04 AM (Electronically Signed)
[2020-11-17 12:07] LABS: BLOOD UREA NITROGEN,BUN 8 mg/dL (7.0-18.0); CARBON DIOXIDE,CO2 24.7 mmol/L (21.0-32.0); CHLORIDE,CL 100 mmol/L (98-107); GLUCOSE RANDOM 102 mg/dL (74-106); POTASSIUM,K 4.2 mmol/L (3.5-5.1); SODIUM,NA 136 mmol/L (136-145)
[2020-11-17 12:49] VITALS: PULSE 70
--- NOTE | 2020-11-17 12:57 | CT ---
INDICATION: Dizziness, near syncope. TECHNIQUE: Head CT without intravenous contrast. Coronal and sagittal formats. COMPARISON: None available. FINDINGS: No intracranial hemorrhage, extra-axial collection, or evidence of acute cortical infarction. Age appropriate ventricles and sulci. No mass effect or midline shift. The cranium and orbits appear intact. The paranasal sinuses and mastoid air cells are clear. IMPRESSION: No acute intracranial findings. Dictated by Clyde Dorman MD @ 11/17/2020 12:55:04 PM Please note that all CT scans at this facility use dose modulation, iterative reconstruction, and/or weight-based dosing when appropriate to reduce radiation dose to as low as reasonably achievable. Dictated by: Clyde Dorman MD @ 11/17/2020 12:55:12 (Electronically Signed)
[2020-11-17 13:31] VITALS: BP 122/80
== END 2020-11-17 13:34 | disposition home or self-care (01) ==
LOC: MW.ED 09:14
DX: R07.2 Precordial pain (principal); E78.00 Pure hypercholesterolemia, unspecified; Z91.040 Latex allergy status; Z79.899 Other long term (current) drug therapy
CPT/HCPCS: 36415; 70450; 71045; 80053; 84443; 84484; 85025; 85379; 93005; 99285; J7030

== ENCOUNTER 2021-02-08 06:06 | Emergency (ER) | payer OTHER ==
--- NOTE | 2021-02-08 06:41 | EDM.PDOC ---
<Orion Islas - Last Filed: 02/08/21 06:37> ED HPI GENERAL MEDICAL PROBLEM - General Chief Complaint: Behavioral/Psych Stated Complaint: ANXIETY Time Seen by Provider: 02/08/21 06:07 - History of Present Illness INITIAL COMMENTS - FREE TEXT/NARRATIVE: History of present illness: Patient had an episode where she suddenly felt short of breath diaphoretic and like she would pass out. She also had an episode 2 days ago in which she did pass out but her coworker caught her and she did not hit her head or anything. These episodes typically happen when she is going to have a migraine in 2 days ago the episode was followed by a migraine. Patient is not having the migraine now. Patient was diaphoretic at the time it happened. The patient was seen for somewhat similar episode in November this year but she had chest pain at that time. Her work-up was negative and she was offered a Zio patch but she chose not to do it. The patient does have history of anxiety and depression. She is on citalopram for 15 years. They try to wean her one time and it did not work and she had recurrent episodes of anxiety and depression. She is otherwise been on it constantly for the 15 years. Patient does not smoke. She is not diabetic. She not treated for hypertension. She is treated for high cholesterol. The patient is prone to anxiety attacks. Patient says her job stressful and physically strenuous. She was at work when this happened this morning. [] Review of systems: As per history of present illness and below otherwise all systems reviewed and negative. Past medical history: As per history of present illness and as reviewed below otherwise noncontributory. Surgical history: As per history of present illness and as reviewed below otherwise noncontributory. Social history: No reported history of drug or alcohol abuse. Family history: As per history of present illness and as reviewed below otherwise noncontributory. Physical exam: Constitutional - well developed, well-nourished and in no acute distress HEENT - normocephalic, no evidence of trauma - external nose and mouth normal - no mass in neck and no JVD - mucosae moist EYES - full EOM, PERRL, no icterus - no evidence of inflammation, injection, or drainage Respiratory - no respiratory distress, equal bilateral expansion, lungs clear to auscultation and no abnormal lung sounds Cardiovascular - Regular Rhythm with S1 and S2 appreciated and no murmur, gallop or rub. GI - abdomen soft without distension or organomegaly - normal bowel sounds - no guard or rebound 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 no gross deformity of long bones or joints - no tenderness, swelling or edema Neurologic - Alert and oriented times four - CN II-XII grossly intact - motor sensory and coordination symmetrically normal Psychiatric - appropriate mood and affect with normal thought content Hematologic - No petechiae or purpura - mucosa appropriate color and sclera not pale - normal nail bed color and refill Integument - no rash or evidence of trauma - normal turgor Diagnostics: [] Therapeutics: [] Impression: [] Plan: [] Definitive disposition and diagnosis as appropriate pending reevaluation and review of above. - Related Data Allergies Allergy/AdvReac Type Severity Reaction Status Date / Time latex Allergy Blisters Verified 02/08/21 06:16 Home Meds: Home Meds Citalopram [Citalopram Hbr] 10 mg PO DAILY 07/26/13 [History] Levonorgestrel/Ethin.estradiol [Falmina-28 Tablet] 1 tab PO ASDIRECTED 11/17/20 [History] atorvaSTATin [Lipitor] 10 mg PO DAILY 11/17/20 [History] Diclofenac Submicronized [Diclofenac] 1 dose PO ASDIRECTED 02/08/21 [History] Past Medical History - Past Health History Medical/Surgical History: Denies Medical/Surgical History HEENT History: Reports: None Cardiovascular History: Reports: None, High Cholesterol Respiratory History: Reports: None Gastrointestinal History: Reports: None Genitourinary History: Reports: None TALK SHOW HOST History: Reports: 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 History: Reports: None Neurological History: Reports: None Psychiatric History: Reports: Anxiety, Depression Endocrine/Metabolic History: Reports: None Hematologic History: Reports: None Immunologic History: Reports: None Oncologic (Cancer) History: Reports: None Dermatologic History: Reports: None - Infectious Disease History Infectious Disease History: Reports: Chicken Pox - Past Surgical History Head Surgeries/Procedures: Reports: None HEENT Surgical History: Reports: Adenoidectomy, Tonsillectomy Cardiovascular Surgical History: Reports: None Respiratory Surgical History: Reports: None GI Surgical History: Reports: None Female Surgical History: Reports: None, Tubal Ligation Endocrine Surgical History: Reports: None 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 Surgical History: Reports: None Oncologic Surgical History: Reports: None Social & Family History - Family History Family Medical History: No Pertinent Family History Oncologic: Reports: Ovarian - Tobacco Use Tobacco Use Status *Q: Never Tobacco User Second Hand Smoke Exposure: No - Caffeine Use Caffeine Use: Reports: Energy Drinks - Recreational Drug Use Recreational Drug Use: No ED ROS GENERAL - Review of Systems Review Of Systems: Comprehensive ROS is negative, except as noted in HPI. ED EXAM, GENERAL - Physical Exam Exam: See Below Free Text/Narrative:: My physical exam is in the HPI Course - Re-Assessments/Exams Free Text/Narrative Re-Assessment/Exam: 02/08/21 06:39 Is quite likely that all of the symptoms are stress related. However we will do some basic lab work and EKG and she will be turned over to my partner the end of my shift for interpretation of these and disposition. Departure - Departure Disposition: Home, Self-Care 01 Condition: Good Clinical Impression: Anxiety - Discharge Information Referrals: Mika Madera MD [Primary Care Provider] - Forms: ED Department Discharge Additional Instructions: Follow-up with your primary care doctor. Continue your medications. Find ways to cope with stress in the work environment. [facility] - [facility] [address] [place] [address] [place] [address] The following information is given to patients seen in the emergency department who are being discharged to home. This information is to outline your options for follow-up care. We provide all patients seen in our emergency department with a follow-up referral. The need for follow-up, as well as the timing and circumstances, are variable depending upon the specifics of your emergency department visit. If you don't have a primary care physician on staff, we will provide you with a referral. We always advise you to contact your personal physician following an emergency department visit to inform them of the circumstance of the visit and for follow-up with them and/or the need for any referrals to a consulting specialist. The emergency department will also refer you to a specialist when appropriate. This referral assures that you have the opportunity for follow-up care with a specialist. All of these measure are taken in an effort to provide you with optimal care, which includes your follow-up. Under all circumstances we always encourage you to contact your private physician who remains a resource for coordinating your care. When calling for follow-up care, please make the office aware that this follow-up is from your recent emergency room visit. If for any reason you are refused follow-up, please contact the [facility] Emergency Department at and asked to speak to the emergency department charge nurse. Sepsis Event Note (ED) - Evaluation Sepsis Screening Result: No Definite Risk <Harshad Richardson - Last Filed: 02/08/21 07:34> #1 Interpretation EKG Date: 02/08/21 Time: 06:56 Rhythm: NSR Rate (Beats/Min): 69 ST-T: Normal Course - Vital Signs Last Recorded V/S: Last Vital Signs Temp 97.9 F 02/08/21 07:08 Pulse 70 02/08/21 07:08 Resp 18 02/08/21 07:08 BP 147/91 H 02/08/21 07:08 Pulse Ox 96 02/08/21 07:08 - Orders/Labs/Meds Labs: Laboratory Tests 02/08/21 02/08/21 02/08/21 Range/Units 06:54 06:54 06:54 WBC 7.01 (4.0-11.0) K/uL RBC 4.65 (4.30-5.90) M/uL Hgb 13.5 (12.0-16.0) g/dL Hct 40.6 (36.0-46.0) % MCV 87.3 (80.0-98.0) fL MCH 29.0 (27.0-32.0) pg MCHC 33.3 (31.0-37.0) g/dL RDW Std Deviation 46.1 (28.0-62.0) fl RDW Coeff of Samira 14 (11.0-15.0) % Plt Count 277 (150-400) K/uL MPV 9.70 (7.40-12.00) fL Neut % (Auto) 68.2 (48.0-80.0) % Lymph % (Auto) 22.4 (16.0-40.0) % Storey % (Auto) 6.7 (0.0-15.0) % Eos % (Auto) 2.3 (0.0-7.0) % Baso % (Auto) 0.4 (0.0-1.5) % Neut # (Auto) 4.8 (1.4-5.7) K/uL Lymph # (Auto) 1.6 (0.6-2.4) K/uL Storey # (Auto) 0.5 (0.0-0.8) K/uL Eos # (Auto) 0.2 (0.0-0.7) K/uL Baso # (Auto) 0.0 (0.0-0.1) K/uL Nucleated RBC % 0.0 /100WBC Nucleated RBCs # 0 K/uL Sodium 139 (136-145) mmol/L Potassium 4.4 (3.5-5.1) mmol/L Chloride 104 (98-107) mmol/L Carbon Dioxide 26.7 (21.0-32.0) mmol/L BUN 15 (7.0-18.0) mg/dL Creatinine 0.8 (0.6-1.0) mg/dL Est Cr Clr Drug Dosing 78.30 mL/min Estimated GFR (MDRD) > 60.0 ml/min Glucose 95 (74-106) mg/dL Calcium 8.8 (8.5-10.1) mg/dL Magnesium 1.9 (1.8-2.4) mg/dL Total Bilirubin 0.3 (0.2-1.0) mg/dL AST 10 L (15-37) IU/L ALT 23 (14-63) IU/L Alkaline Phosphatase 72 (46-116) U/L Troponin I < 0.050 (0.000-0.056) ng/mL Total Protein 6.9 (6.4-8.2) g/dL Albumin 2.8 L (3.4-5.0) g/dL Globulin 4.1 H (2.6-4.0) g/dL Albumin/Globulin Ratio 0.7 L (0.9-1.6) HCG, Qual NEGATIVE (NEG) - Re-Assessments/Exams Free Text/Narrative Re-Assessment/Exam: 02/08/21 07:34 EKG labs reviewed patient be discharged home to follow-up with primary care physician. Departure - Departure Time of Disposition: 07:34 Sepsis Event Note (ED) - Focused Exam Vital Signs: Vital Signs Temp Pulse Resp BP Pulse Ox 02/08/21 07:08 97.9 F 70 18 147/91 H 96 02/08/21 06:16 98.3 F 77 18 147/90 H 97
[2021-02-08 07:25] LABS: BLOOD UREA NITROGEN,BUN 15 mg/dL (7.0-18.0); CARBON DIOXIDE,CO2 26.7 mmol/L (21.0-32.0); CHLORIDE,CL 104 mmol/L (98-107); GLUCOSE RANDOM 95 mg/dL (74-106); POTASSIUM,K 4.4 mmol/L (3.5-5.1); SODIUM,NA 139 mmol/L (136-145)
[2021-02-08 07:55] VITALS: BP 140/94; PULSE 73
== END 2021-02-08 07:53 | disposition home or self-care (01) ==
LOC: MW.ED 06:06
DX: F41.9 Anxiety disorder, unspecified (principal); E78.00 Pure hypercholesterolemia, unspecified; Z91.040 Latex allergy status; Z79.899 Other long term (current) drug therapy
CPT/HCPCS: 36415; 80053; 83735; 84484; 84703; 85025; 93005; 99283-25

== ENCOUNTER 2024-01-11 13:45 | Emergency (ER) | payer OTHER ==
[2024-01-11] MEDS: Metoclopramide 10 MG/2 ML SDV IVPUSH STA (14:42)
[2024-01-11] MEDS: Sodium Chloride 0.9% 500 ML IV STA (14:42)
[2024-01-11] MEDS: Magnesium Sulfate/Water Premix 2 GM in Premix Bag 1 BAG IV STA (14:43)
[2024-01-11] MEDS: diphenhydrAMINE 50 MG/ML SDV IVPUSH STA (14:43)
[2024-01-11 14:48] LABS: BASOPHILS ABSOLUTE AUTO 0.04 K/uL (0.00-0.20); BASOPHILS PERCENT AUTO 0.7 % (0.0-1.0); EOSINOPHILS ABSOLUTE AUTO 0.14 K/uL (0.00-0.45); EOSINOPHILS PERCENT AUTO 2.5 % (0.0-6.0); HEMATOCRIT 42.2 % (37.0-47.0); HEMOGLOBIN 14.1 g/dL (12.0-16.0); IMMATURE GRAN ABSOLUTE AUTO 0.01 K/uL (0.00-0.05); IMMATURE GRAN PERCENT AUTO 0.2 % (0.0-0.4); LYMPHOCYTES ABSOLUTE AUTO 1.39 K/uL (1.00-4.80); LYMPHOCYTES PERCENT AUTO 24.8 % (24.0-44.0); MEAN CORPUSCULAR HEMOGLOBIN 29.4 pg (28.0-32.0); MEAN CORPUSCULAR HGB CONC 33.4 g/dL (32.0-36.0); MEAN CORPUSCULAR VOLUME 88.1 fL (83.0-99.0); MEAN PLATELET VOLUME 9.1 fL (9.4-12.3); MONOCYTES ABSOLUTE AUTO 0.36 K/uL (0.00-0.80); MONOCYTES PERCENT AUTO 6.4 % (0.0-8.0); NEUTROPHILS ABSOLUTE AUTO 3.66 K/uL (1.80-7.70); NEUTROPHILS PERCENT AUTO 65.4 % (41.0-71.0); PLATELET COUNT,PLT 283 K/uL (150-400); RED BLOOD CELL COUNT 4.79 M/uL (4.10-5.30)
[2024-01-11 15:13] LABS: ALANINE AMINOTRANSFERASE,ALT 18 IU/L (14-63); ALBUMIN 3.5 g/dL (3.4-5.0); ALKALINE PHOSPHATASE 80 U/L (46-116); ASPARTATE AMNIOTRANSFERASE,AST 13 IU/L (15-37); BILIRUBIN TOTAL 0.3 mg/dL (0.2-1.0); BLOOD UREA NITROGEN,BUN 12 mg/dL (7.0-18.0); CALCIUM 8.7 mg/dL (8.5-10.1); CARBON DIOXIDE,CO2 25.5 mmol/L (21.0-32.0); CHLORIDE,CL 105 mmol/L (98-107); GLUCOSE RANDOM 137 mg/dL (74-106); MAGNESIUM 2.1 mg/dL (1.8-2.4); POTASSIUM,K 3.9 mmol/L (3.5-5.1); PROTEIN TOTAL,TP 6.9 g/dL (6.4-8.2); SODIUM,NA 139 mmol/L (136-145)
[2024-01-11 15:18] LABS: ESTIMATED GFR 70 mL/min (>60)
[2024-01-11] MEDS: Ketorolac 30 MG/ML SDV IVPUSH STA (16:03)
[2024-01-12 19:03] VITALS: BP 152/84; PULSE 87
== END 2024-01-11 16:58 | disposition home or self-care (01) ==
LOC: MW.ED 13:45
DX: G43.909 Migraine, unspecified, not intractable, without status migrainosus (principal); E78.00 Pure hypercholesterolemia, unspecified; Z79.899 Other long term (current) drug therapy; Z91.040 Latex allergy status; Z75.8 Other problems related to medical facilities and other health care
CPT/HCPCS: 36415; 70450; 80053; 83735; 84484; 84703; 85025; 93005; 96365; 96375; 99284; J1100; J1200; J1885; J2765; J3475; J7040; 93010; 99285

== ENCOUNTER 2024-04-13 19:06 | Emergency (ER) | payer OTHER ==
[2024-04-13 20:04] VITALS: BP 164/96; PULSE 96
== END 2024-04-13 22:05 | disposition home or self-care (01) ==
LOC: MW.ED 19:06
DX: J10.1 Influenza due to other identified influenza virus with other respiratory manifestations (principal); E78.00 Pure hypercholesterolemia, unspecified; Z75.8 Other problems related to medical facilities and other health care; Z91.040 Latex allergy status; Z79.899 Other long term (current) drug therapy
CPT/HCPCS: 87428-QW; 99283